=== PATIENT | female | born 1965 | race African-American/Black ===

== ENCOUNTER 2022-06-23 08:52 | Emergency (ER) | payer OTHER, BC, SELFPAY ==
--- NOTE | ~2022-06-23 | XR_ITS ---
EXAMINATION: XR wrist RT min 3V INDICATION: Right wrist pain TECHNIQUE: Four views of the right wrist are obtained. COMPARISON: None available FINDINGS: There is no fracture, dislocation, or subluxation. Negative ulnar variance is noted. The so ft tissues are unremarkable. IMPRESSION: 1. No acute osseous abnormality. Reviewed, dictated and finalized at location B.
--- NOTE | ~2022-06-23 | XR_ITS ---
EXAMINATION: XR shoulder RT min 2V DATE: 06/23/2022 09:33 INDICATION: Right shoulder pain. Injury. TECHNIQUE: 4 views of right shoulder were obtained. COMPARISON: None. FINDINGS: Bone alignment is normal. No fracture. There is mild osteoarthritis of glenohumeral joint a nd severe osteoarthritis of acromioclavicular joint. IMPRESSION: 1. Polyarticular osteoarthritis. Reviewed, dictated and finalized at location A.
[2022-06-23 09:06] VITALS: BP 118/73; PULSE 83; RESP 20; TEMP 36.3; O2SAT 98
--- NOTE | 2022-06-23 09:11 | ED.GENADULT ---
HPI - General Adult General Chief complaint: Wound/Laceration Stated complaint: WC Time Seen by Provider: 06/23/22 09:11 Mode of arrival: ambulatory Limitations: no limitations History of Present Illness HPI narrative: 57-year-old female presents concern for a fall at work. Reports Thursday she fell onto her right side. Reports since then she has had pain in her right wrist, shoulder. She also reports some aching in the right hip and knee. She reports she has been taking ibuprofen and using ice. She reports she has been wearing a brace on her right wrist for pain relief. She denies any decree strength, sensation, range of motion in any extremity. She reports bruising to the anterior left knee. complaint: Fall Related Data Home Medications Medication Instructions Recorded Confirmed amlodipine 10 mg tablet 10 mg PO DAILY 06/23/22 06/23/22 cetirizine 10 mg tablet 10 mg PO DAILY 06/23/22 06/23/22 fluticasone propionate 50 50 mcg intranasal DAILY 06/23/22 06/23/22 mcg/actuation nasal spray,suspension Allergies Allergy/AdvReac Type Severity Reaction Status Date / Time No Known Allergies Allergy Verified 06/23/22 09:12 Review of Systems Review of Systems: CONSTITUTIONAL: Denies malaise, chills, sweats, or fever. SKIN: Reports bruising to the right knee knee. Denies lacerations or abrasions. Denies swelling MUSCULOSKELETAL: Reports aching to the right knee, right hip, muscles between the right neck and shoulder. Reports pain to the right shoulder and right wrist NEUROLOGIC: Denies numbness, weakness, or headache. PSYCHIATRIC: Denies anxiety or depression. All systems reviewed & are unremarkable except as noted in HPI and below PMFSH Comments At time of signature, agree with nursing past medical, surgical, social and family history. There is no relevant family history pertinent to the presenting complaint Exam Narrative: GENERAL: Well-appearing, well-nourished, and in no acute distress. HEAD: Normocephalic, atraumatic. EYES: PERRLA, conjunctivae clear NECK: Supple. CHEST: Speaks in full sentences. No respiratory distress. HEART: Regular rate and rhythm. Normal and equal peripheral pulses. EXTREMITIES: Right upper and lower extremity (shoulder, wrist, knee) grossly normal strength and sensation, normal range of motion at the No edema or ecchymosis. 5/5 strength with shoulder, wrist, digit, knee flexion and extension. Normal sensation with sensitivity to light touch and pain. No point tenderness. No open wounds, no skin tenting, no devitalized tissue or atrophy, no trophic changes, no obvious deformity, alignment normal, nearby joints and structures intact. Distal pulses palpable and equal bilaterally, skin warm, dry, pink. Capillary refill less than 3 seconds. SKIN: Warm, dry, no rash. NEURO: Alert and oriented x3. PSYCH: Normal mood and affect Course Course Emergency Course: Patient is aware of diagnosis, understands and agrees to treatment plan. Anticipatory guidance given. Patient agrees to follow-up as directed and is aware of reasons to seek care at the emergency department. Portions of this record may have been created with voice recognition software Level of Care: Express Care Visit Vital Signs Vital signs: Vital Signs Temperature 97.4 F L 06/23/22 09:06 Pulse Rate 83 06/23/22 09:06 Respiratory Rate 20 06/23/22 09:06 Blood Pressure 118/73 06/23/22 09:06 Pulse Oximetry 98 06/23/22 09:06 Temperature 97.4 F L 06/23/22 09:06 Pulse Rate 83 06/23/22 09:06 Respiratory Rate 20 06/23/22 09:06 Blood Pressure 118/73 06/23/22 09:06 Pulse Oximetry 98 06/23/22 09:06 Reviewed. Medical Decision Making MDM Narrative Medical decision making narrative: Patients injury and pain is consistent with musculoskeletal etiology. No signs of neurological or vascular compromise on exam. Compartments and tissues are soft without signs of compartment syndrome. Pain is felt appropriat
== END 2022-06-23 10:08 | disposition home or self-care (01) ==
PROVIDERS: Emergency Provider Nurse Practitioner
DX: M25.531 Pain in right wrist (principal); M25.511 Pain in right shoulder; I10 Essential (primary) hypertension
CPT/HCPCS: 73030; 73110; 99214; G0463

== ENCOUNTER 2022-06-26 08:39 | Emergency (ER) | payer OTHER, BC, SELFPAY ==
--- NOTE | 2022-06-26 08:42 | ED.GENADULT ---
HPI - General Adult General Chief complaint: Extremity Injury, Upper Stated complaint: wc Time Seen by Provider: 06/26/22 08:49 Source: patient and RN notes reviewed Mode of arrival: ambulatory Limitations: no limitations History of Present Illness HPI narrative: 57-year-old female presents to the ER with complaints of shoulder pain, wrist pain that she was evaluated for 2 days ago. Now complains of right lower back pain. Patient states she is here to have paperwork filled out. Discussed with patient that we do not do Workmen's Comp., fill out any paperwork. She needs to follow-up with her occupational health and/or primary care provider. Patient denies any numbness or tingling in extremities. No saddle anesthesia. Walks with a normal gait. States the wrist is feeling better, is currently wearing a wrist splint. Still having discomfort in the right shoulder. Can raise laterally and anteriorly just past 90 degrees. No bruising, swelling noted. MD complaint: right wrist, shoulder and lower back Onset (ago): day(s) (6) Exacerbating factors: movement Related Data Home Medications Medication Instructions Recorded Confirmed amlodipine 10 mg tablet 10 mg PO DAILY 06/23/22 06/23/22 cetirizine 10 mg tablet 10 mg PO DAILY 06/23/22 06/23/22 fluticasone propionate 50 50 mcg intranasal DAILY 06/23/22 06/23/22 mcg/actuation nasal spray,suspension Allergies Allergy/AdvReac Type Severity Reaction Status Date / Time No Known Allergies Allergy Verified 06/26/22 08:45 Review of Systems Review of Systems: All systems reviewed & are unremarkable except as noted in HPI and below Constitutional: Constitutional: Reports no additional constitutional complaints, Denies chills and Denies fever(s) Eyes: Eyes: Reports no additional eye complaints ENT: Reports system reviewed and no additional complaints, except as documented Cardiovascular: Cardiovascular: Reports no additional cardiovascular complaints Respiratory: Respiratory: Reports no additional respiratory complaints Gastrointestinal: Gastrointestinal: Reports no additional gastrointestinal complaints Musculoskeletal: Musculoskeletal: Reports as per HPI, Reports back pain (right lower) and Reports arthralgias (right wrist and shoulder) Integumentary/Breasts: Skin/Breast: Reports system reviewed and no additional complaints, except as docu Neurologic: Reports system reviewed and no additional complaints, except as documented Psychiatric: Psychiatric: Reports no additional psychiatric complaints Allergic/Immunologic: Allergic/Immunologic: Reports no additional allergic/immunologic complaints PMFSH Past Medical History Medical History History of high blood pressure Comments At the time of my signature, I reviewed and agree with the nursing past medical, surgical, social, and family history. There is no relevant family history pertinent to the patient complaint. Exam Const: General: healthy appearing, no acute distress and alert Nutritional Appearance: well nourished and obese Orientation/consciousness: patient oriented x3 Limitations: no limitations HENMT: Head: normal to inspection Ears: external ears normal Eyes: General: appearance normal, both eyes and all related structures Pupils: Equal, round and reactive pupils present Neck: Neck: normal visual inspection, no lymphadenopathy and no meningeal signs Chest: Chest palpation & inspection: normal inspection of the chest Resp: Effort & Inspection: normal respiratory effort and no use of accessory muscles Auscultation: clear to auscultation bilaterally, no crackles, no rales, no rhonchi and no wheezes Cardio: Rate: regular rate Rhythm: regular rhythm GI: GI Palp: Yes Soft to palpation and No Tenderness to palpation present (GI) Back/Spine/Pelvis: Cervical Spine: normal cervical lordosis Thoracic/Lumbar Spine: thoracic and lumbar spine normal to ins
[2022-06-26 08:45] VITALS: BP 122/84; PULSE 86; RESP 16; TEMP 36.9; O2SAT 99
== END 2022-06-26 09:09 | disposition home or self-care (01) ==
PROVIDERS: Emergency Provider Nurse Practitioner
DX: M25.511 Pain in right shoulder (principal); M25.531 Pain in right wrist; S39.012A Strain of muscle, fascia and tendon of lower back, initial encounter; X58.XXXA Exposure to other specified factors, initial encounter; I10 Essential (primary) hypertension
CPT/HCPCS: 99212; G0463